=== PATIENT | male | born 1970 | race Caucasian/White ===

== ENCOUNTER 2019-08-13 09:22 | Emergency (ER) | payer OTHER ==
[~2019-08-13] VITALS: Ht 175.3 cm; Wt 90.7 kg
--- NOTE | 2019-08-13 09:24 | NUR ---
Arrived via [facility] ambulance with sudden onset of weakness, dizziness, nausea, vomiting. Placed in room 2. Placed on project technician, blood pressure machine and pulse oximeter. To gown for exam. Side rails up. Report given to Kristie LUCIANO.
[2019-08-13 09:34] VITALS: BP_SYST 152
--- NOTE | 2019-08-13 09:35 | NUR ---
ER at bedside examining patient.
--- NOTE | 2019-08-13 09:40 | NUR ---
patient bib via [facility] ambulance, cc of dizziness and vomiting after ate cereal this morning. vomiting food containe. denies chest or abdominal pain stated 2 months ago same episode, work up done nothing found out. bp slightly elevated, no fever. family at bedside.
[2019-08-13 09:44] LABS: BASOPHILS % (AUTO) 0.6 % (0.0-2.0); EOSINOPHILS # (AUTO) 0.2 K/uL (0.0-0.4); EOSINOPHILS % (AUTO) 2.8 % (0.0-4.0); HEMATOCRIT 46.1 % (36-54); LYMPHOCYTES % (AUTO) 30.5 % (20.5-51.5); MEAN CORPUSCULAR HEMOGLOBIN 33 pg (27-31); MEAN CORPUSCULAR HGB CONC 36 % (32-36); MEAN CORPUSCULAR VOLUME 90 fL (79.0-98.0); MONOCYTES # (AUTO) 0.5 K/uL (0.0-1.0); MONOCYTES % (AUTO) 7.3 % (1.7-9.3); NEUTROPHILS # (AUTO) 3.9 K/uL (1.8-7.7); NEUTROPHILS % (AUTO) 58.8 % (40.0-70.0); PLATELET COUNT (AUTO) 294 K/uL (130-430); RED CELL DISTRIBUTION WIDTH 12.6 % (9.0-15.0); WHITE BLOOD COUNT (AUTO) 6.7 K/uL (4.8-10.8)
[2019-08-13] MEDS ORDERED: MECLIZINE HCL 25 MG TABLET (ANITVERT) PO ONE (09:45)
[2019-08-13] MEDS ORDERED: METOCLOPRAMIDE HCL 10 MG/2 ML VIAL IVP ONE ×2 (09:45→10:30)
[2019-08-13 09:55] LABS: HEMOGLOBIN 16.7 g/dL (14.0-18.0)
[2019-08-13 10:00] LABS: CALCIUM 9.4 mg/dL (8.4-11.0); CREATININE 1.04 mg/dL (0.55-1.30); POTASSIUM 3.3 mmol/L (3.5-5.1)
[2019-08-13 10:04] LABS: PROTHROMBIN TIME 10.2 SECS (9.5-12.5)
[2019-08-13 10:06] LABS: ALBUMIN 4.5 g/dL (3.4-4.8); TOTAL BILIRUBIN 0.5 mg/dL (0.0-1.0)
--- NOTE | 2019-08-13 10:29 | NUR ---
Patient transported to radiology via gurney, accompanied by radiology services manager.
[2019-08-13 11:55] VITALS: BP_SYST 154
--- NOTE | 2019-08-13 11:55 | NUR ---
Patient given written and verbal discharge instructions and verbalizes understanding. ER MD discussed with patient the results and treatment provided. Patient in stable condition. ID arm band removed. Rx of Meclizine given. Patient educated on pain management and to follow up with PMD. Pain Scale 0/10. Patient was provided WC to private auto for DC home. Opportunity for questions provided and answered. Medication side effect fact sheet provided.
== END 2019-08-13 11:55 | disposition home or self-care (01) ==
LOC: SED 09:22
DX: R42 Dizziness and giddiness (principal)
CPT/HCPCS: 36415; 70450; 71045; 80053; 84484; 85025; 85610; 85730; 93005; 96374; 96376; 99284; J2765; J8597